=== PATIENT | male | born 1975 | race Caucasian/White ===

== ENCOUNTER 2016-09-15 10:38 | Day surgery (SDC) | payer OTHER ==
[2016-09-13 13:10] VITALS: BMI 44.9
[~2016-09-15 10:38] MED LIST: LACTATED RINGERS 1,000 ML IV SCH; LIDOCAINE 1% 20 ML VIAL (10MG/ML) FOR IV START INTRADERMA PRN; Pre Op ABX Message 1 EACH MISC MISCELLANE ONE; SCOPOLAMINE 1.5MG/72HR PATCH TRANSDERM ONE; fentaNYL (PF) 50 MCG/ML 20 ML VIAL IVP PRN
[2016-09-15 11:14] VITALS: RESP 16; TEMP 97.6
[2016-09-15] MEDS: ONDANSETRON 4 MG/2 ML VIAL IVP ONE ×3 (11:16→14:37)
[2016-09-15] MEDS: DEXAMETHASONE SOD PHOSPHATE 10 MG/ML 1 ML VIAL IV ONE ×2 (11:16→11:39)
[2016-09-15] MEDS: MIDAZOLAM 2 MG/2 ML VIAL IV PRN ×2 (11:19→11:20)
[2016-09-15] MEDS ORDERED: ceFAZolin 2 GM in SODIUM CHLORIDE 0.9% 100 ML IVPB ONE (11:37)
[2016-09-15] MEDS ORDERED: MIDAZOLAM 2 MG/2 ML VIAL ONE (12:13)
[2016-09-15] MEDS ORDERED: ROPIVACAINE 5 MG/ML 30 ML VIAL ONE (12:13)
[2016-09-15] MEDS ORDERED: ROCURONIUM BROMIDE 10 MG/ML 10 ML VIAL IV ONE (12:13)
[2016-09-15] MEDS ORDERED: fentaNYL (PF) 50 MCG/ML 2 ML AMP ONE (12:13)
[2016-09-15] MEDS ORDERED: LIDOCAINE 1% INJ 10MG/ML (20 ML MDV) ONE (12:13)
[2016-09-15] MEDS ORDERED: LIDOCAINE 2%-EPI 1:100,000 20 ML VIAL ONE (12:13)
[2016-09-15] MEDS ORDERED: PROPOFOL 10 MG/ML 20 ML VIAL IV ONE (12:13)
[2016-09-15] MEDS ORDERED: SUCCINYLCHOLINE CHLORIDE VIAL 200 MG/10 ML VIAL IV ONE (12:13)
[2016-09-15] MEDS ORDERED: ePHEDrine 50 MG/ML 1 ML AMP ONE (12:13)
[2016-09-15] MEDS ORDERED: NEOSTIGMINE 1 MG/ML 10 ML VIAL ONE (12:13)
[2016-09-15] MEDS ORDERED: GLYCOPYRROLATE 0.2 MG/ML 2 ML VIAL ONE (12:13)
[2016-09-15] MEDS ORDERED: EPINEPHrine 4 MG in SODIUM CHLORIDE 0.9% IRRIGATIO 3,000 ML IRRIGATION ONE ×4 (13:19)
[2016-09-15] MEDS ORDERED: LACTATED RINGERS 1,000 ML IV ONE (13:53)
--- NOTE | 2016-09-15 14:13 | P.OP ---
Date of Procedure: 09/15/16 Procedure(s) Performed: PREOPERATIVE DIAGNOSES: 1. Left shoulder impingement 2. Subacromial bursitis 3. Rotator cuff tendinopathy 4. Acromioclavicular osteoarthritis 5. Possible referred pain into shoulder from cervical pathology POSTOPERATIVE DIAGNOSES: 1. Right shoulder impingment with subacromial moderate-severe bursitis and subacromial adhesions 2. Superior labral degenerative/type I tear 3. Partial rotator cuff tear (supraspinatus, bursal surface 2-3 mm depth) 4. Possible additional referred pain into shoulder from cervical pathology PROCEDURES PERFORMED: 1. Right shoulder arthroscopy with partial distal clavicle excision 2. Arthroscopic debridement superior labral degenerative tear and partial tear of rotator cuff 3. Arthroscopic lysis of adhesions subacromial space 4. Arthroscopic subacromial decompression ANESTHESIA: General plus interscalene block (given for post-operative pain management) SHOW HOST OR HOSTESS: None COMPLICATIONS: None ESTIMATED BLOOD LOSS: 25 cc TOURNIQUET: None DISPOSITION: To post-anesthesia care unit INDICATIONS: Ron is a 41 year old male with a history of pain in the right shoulder that has been resistant to conservative management. He has signs and symptoms consistent with a possible rotator cuff or labral etiology. There is mild impingement also noted on exam and findings consistent with this on MRI. We have discussed that there may be another source of symptoms, namely the neck , with a possible evolving cervical radiculopathy. At this point the patient has failed conservative management and I have advised a diagnostic arthroscopy with the plan to repair or optimize the condition of the shoulder if possible. I have explained the details of this surgery thoroughly and also explained the potential risks and complications. These are inclusive of, but not limited to: bleeding, infection, scarring, discomfort, blood vessel and nerve damage, stiffness, weakness, need for further surgery, failure to relieve symptoms, persistence or worsening of problems, , and other risks. The consent form has been signed. PROCEDURE: Appropriate consent was obtained from the patient, who was then taken to the operating room and placed in the supine position. General anesthesia was initiated and after confirmation of adequate anesthesia, the patients shoulder was examined. There was full passive range of motion. The shoulder was stable. Next, the patient was rotated into the lateral decubitus position and stabilized to the table with a horn bag and padded straps. Care was taken to make sure that all pressure points were adequately padded. Bear-hugger was used along with bilateral leg sequential compression devices. Prepping and draping was completed in the usual aseptic fashion using ChloraPrep. The patient received prophylactic intravenous antibiotics prior to incision. The shoulder was suspended from traction with 15 lbs. of weight in a position of 45 degrees abduction. Landmarks were outlined with a skin marking pen. Time out was called, confirming patients identity, side, procedure, and antibiotic administration. A spinal needle was inserted into the glenohumeral joint and fluid was administered to distend the joint. Good pressure was noted after 100 cc was administered. A posterior portal was created using an 11 blade and the arthroscopic canula, over a dull trocar, was carefully inserted into the joint. Arthroscopy then commenced. An anterior portal was inserted in the rotator interval area using inside-out technique. Biceps tendon was normal. Infraspinatus, supraspinatus, subscapularis, and teres minor attachments were normal. Hyaline cartilage was noted to be normal with regard to both the glenoid and humeral head. Supraspinatus was completely normal to visualization and probing. Labrum showed evidence of moderate degenerative change superiorly, posteriorly , and anteriorly. These areas of labrum were debrided back to stable tissue using a shaver thermal modification using the ArthroCare device on a low setting and the labrum had a significantly improved appearance once this was performed. Thorough probing of the labrum showed good attachment without evidence of peel back. Subscapularis recess and axillary recess were normal. No significant synovitis was seen. Normal capsular ligaments (SGHL, MGHL, IGHL ) were seen. Attention was then directed to the subacromial space. The camera and instruments were redirected into the subacromial space and bursoscopy was performed. Significant bursitis was noted . A lateral portal was created using outside-in technique and the thickened bursal material was removed using a rotary shaver. The spinal needle was identified and the area was thoroughly inspected around the spinal needle . No evidence of full-thickness rotator cuff tear was seen, however, there was evidence of small partial-thickness tear at the musculotendinous junction and somewhat into the tendon substance of the supraspinatus, but no more than approximately 3 mm depth. Hyperaemia within the bursa likely consistent with chronic impingement syndrome was noted. There did appear to be evidence of outlet impingement--there was less than 5 mm of space available between the undersurface of the acromion and the rotator cuff. The undersurface of the acromion had minor frictional changes consistent with minor impingement syndrome. The underside of the anterior acromion was cleared of soft tissue using an arthroscopic radiofrequency ablator. As noted previously, there were mild frictional changes on the bursal side of the cuff. A limited subacromial decompression was performed using a ventura. Approximately 3 -4 mm of material was removed from the anterior-inferior corner of the acromion. This resection was beveled upwards laterally, and carried medially to the AC joint. The distal clavicle appeared to have a contributing downward ridge at the margin of the acromioclavicular joint, and therefore this ridge of bone was removed using a ventura, but the entirety of the distal clavicle was not removed. Subsequently, 4-0 Monocryl suture was used to close the portals. Steri- strips were applied as well as sterile dressing. The shoulder was then placed into a sling and the patient was transferred to recovery room in stable condition. Sponge and needle counts were correct.
[2016-09-15] MEDS: KETOROLAC 30 MG/ML 1 ML VIAL IVP ONE ×2 (14:37→14:54)
[2016-09-15] MEDS: HYDROmorphone 1 MG/ML 1 ML SYRINGE IVP PRN ×4 (14:37→15:01)
[2016-09-15 16:07] VITALS: BP 134/66; PULSE 60
== END 2016-09-15 16:36 | disposition home or self-care (01) ==
LOC: OR 10:38
PROVIDERS: ATTEND Orthopaedic Surgery
DX: M75.101 Unspecified rotator cuff tear or rupture of right shoulder, not specified as traumatic (principal); M75.01 Adhesive capsulitis of right shoulder; M75.51 Bursitis of right shoulder; M75.41 Impingement syndrome of right shoulder; M19.019 Primary osteoarthritis, unspecified shoulder; M65.811 Other synovitis and tenosynovitis, right shoulder; I49.3 Ventricular premature depolarization; I34.0 Nonrheumatic mitral (valve) insufficiency; Q21.1 Atrial septal defect; I10 Essential (primary) hypertension; J45.909 Unspecified asthma, uncomplicated; E07.9 Disorder of thyroid, unspecified; F32.9 Major depressive disorder, single episode, unspecified; Z79.899 Other long term (current) drug therapy; Z79.1 Long term (current) use of non-steroidal anti-inflammatories (NSAID); Z88.8 Allergy status to other drugs, medicaments and biological substances
CPT/HCPCS: 29822; 64415; J0171; J2250; J0330; J1100; J2710; J0690; J2405; J2001; J3010; J1885; J1170; J2795; J2704

== ENCOUNTER 2016-10-04 15:10 | Emergency (ER) | payer OTHER ==
[2016-10-04] MEDS ORDERED: LIDOCAINE 1% INJ 10MG/ML (20 ML MDV) SQ ONE (16:16)
[2016-10-04] MEDS ORDERED: cefTRIAXone 1,000 MG VIAL (IM USE) IM STA (16:32)
[2016-10-04] MEDS ORDERED: HYDROcodone/APAP 5-325MG 1 EACH TAB PO STA (16:33)
--- NOTE | 2016-10-04 16:35 | ED ---
General Adult HPI - General Chief complaint: Skin/Abscess/Foreign Body Stated complaint: swelling on face Time Seen by Provider: 10/04/16 15:40 Source: patient, family, RN notes reviewed Mode of arrival: ambulatory Limitations: no limitations - History of Present Illness Initial comments: 41-year-old male presenting for facial abscess. Patient states he thought initially an ingrown hair under his nose on the right side which then developed into a large and swollen area. Over the past 3 days it has gotten worse. He denies any specific drainage. He did try to drain it with a needle several days ago but did not get anything out. He is not been on any recent antibiotics. States he is having difficulty breathing through his nose because of the swelling. He denies any throat swelling or sore throat. He denies any fevers or chills. Denies any chest pain or shortness of breath. - Related Data Home Medications Medication Instructions Recorded Confirmed Montelukast [Singulair] 10 mg PO QAM 02/17/14 10/04/16 Atorvastatin [Lipitor] 20 mg PO DAILY 09/13/16 10/04/16 Cetirizine HCl [Zyrtec] 5 mg PO DAILY 09/13/16 10/04/16 Levothyroxine Sodium [Synthroid] 50 mcg PO DAILY 09/13/16 10/04/16 OXcarbazepine [Trileptal] 300 mg PO BID 09/13/16 10/04/16 Sertraline HCl [Zoloft] 100 mg PO HS 09/13/16 10/04/16 Ibuprofen [Motrin] 800 mg PO TID PRN 10/04/16 10/04/16 Previous Rx's Medication Instructions Recorded Sennosides-Docusate Sodium 1 tab PO BID #60 tablet 09/15/16 [Senokot-S] Cephalexin [Keflex] 500 mg PO Q8HR #21 cap 10/04/16 HYDROcodone/APAP 5-325MG [[place] 1 tab PO Q6HR PRN #12 tab 10/04/16 5-325] Ibuprofen [Motrin] 800 mg PO Q8HR PRN #21 tab 10/04/16 Sulfamethox-Tmp 800-160Mg [Bactrim 1 each PO Q12HR #14 tab 10/04/16 Ds] Allergies Allergy/AdvReac Type Severity Reaction Status Date / Time atenolol [From Tenormin] Allergy Swelling Verified 10/04/16 15:48 Review of Systems ROS Statement: Those systems with pertinent positive or pertinent negative responses have been documented in the HPI. ROS Other: All systems not noted in ROS Statement are negative. 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 SEASONAL ALLERGIES History of Any Multi-Drug Resistant Organisms: None Reported Past Surgical History: Orthopedic Surgery, Tonsillectomy Additional Past Surgical History / Comment(s): OPEN HEART SURGERY AT AGE OF 5. JAW SX. CTR- RT WRIST. LT KNEE SCOPE. FRENULECTOMY. SKIN GRAFT LT THIMB Past Anesthesia/Blood Transfusion Reactions: No Reported Reaction Past Psychological History: Depression Smoking Status: Former smoker Past Alcohol Use History: Rare Additional Past Alcohol Use History / Comment(s): QUIT SMOKING 6 MONTHS AGO Past Drug Use History: None Reported - Past Family History Mother Family Medical History: No Reported History General Exam - General Exam Comments Initial Comments: General: Awake and Alert. No acute distress. Does not appear acutely ill. Eyes: LORI, EOM intact. No nystagmus. No scleral icterus. HENT: Atraumatic, normocephalic. Mucous membranes moist. Trachea midline. The area underneath the right nostril approx 2cm x 2cm that is indurated and swollen and erythematous. This area is tender to palpation. There is a scab over the lateral portion of this without any drainage. There is no posterior pharyngeal swelling or erythema. There does not appear to be any intraoral involvement. Neck: The neck is supple, there is no tenderness or JVD. Cardiovascular: Regular rate and rhythm. No murmur, rub, or gallop is appreciated. Distal pulses intact. Respiratory: Lungs are clear to auscultation bilaterally. No wheezes, rales, rhonchi. No respiratory distress. Gastrointestinal: Soft, Nontender. No rebound or guarding. Non-distended. No masses or organomegaly noted. No CVA tenderness. Musculoskeletal: No tenderness. Normal ROM. No gross deformity. No strength deficits. Neurological: A&Ox3. CN II-XII grossly intact, There are no obvious motor or sensory deficits. Coordination appears grossly intact. Speech is normal. Skin: Skin is warm and dry and no rashes or lesions are noted, except as above. Psychiatric: Cooperative, appropriate mood & affect, normal judgment. Limitations: no limitations Course Vital Signs 10/04/16 10/04/16 15:19 17:26 Temperature 97.4 F L 98.2 F Pulse Rate 52 L 50 L Respiratory 20 18 Rate Blood Pressure 176/82 150/67 O2 Sat by Pulse 98 97 Oximetry Procedures - Incision & Drainage Consent Obtained: verbal consent Time Out Performed?: Yes Site: face Anesthetic Used: lidocaine 1% Sterile Field Used?: Yes Scalpel Used: #11 Irrigation Performed?: No I&D Drainage Obtained: Pus, Blood Culture Obtained?: No Patient Tolerated Procedure: well Medical Decision Making - Medical Decision Making 41-year-old male presenting for facial abscess underneath the right nostril. There is some swelling associated with this. Area was anesthetized with topical lidocaine. There was some purulent drainage from the site of the abscess area during this process. I and D was performed over the area where the drainage occurred. There was small amount of purulence and blood expressed. However it is more likely suggestive of facial cellulitis with significant induration than significant abscess. Patient was given IM Rocephin. Plan to double cover on Bactrim and Keflex. Patient does not have any significant MRSA risks at this time. Discussed close follow-up with PCP. Discussed close return precautions if this is not improving over the next 24-48 hours. Patient and mother are agreeable with plan and discharge home. Disposition Clinical Impression: Facial cellulitis, Facial abscess Disposition: HOME SELF-CARE Condition: Stable Instructions: Abscess (ED), Cellulitis (ED) Prescriptions: Cephalexin [Keflex] 500 mg PO Q8HR #21 cap HYDROcodone/APAP 5-325MG [[place] 5-325] 1 tab PO Q6HR PRN #12 tab PRN Reason: Pain Ibuprofen [Motrin] 800 mg PO Q8HR PRN #21 tab PRN Reason: Pain Sulfamethox-Tmp 800-160Mg [Bactrim Ds] 1 each PO Q12HR #14 tab Referrals: Darwin Moncada MD [Primary Care Provider] - 1-2 days Time of Disposition: 16:45
[2016-10-04 17:26] VITALS: BP 150/67; PULSE 50; RESP 18; TEMP 98.2
== END 2016-10-04 17:26 | disposition home or self-care (01) ==
LOC: EC 15:10
DX: L03.211 Cellulitis of face (principal); L02.01 Cutaneous abscess of face; Z79.899 Other long term (current) drug therapy; E78.5 Hyperlipidemia, unspecified; E07.9 Disorder of thyroid, unspecified; Z88.8 Allergy status to other drugs, medicaments and biological substances; F32.9 Major depressive disorder, single episode, unspecified; Z87.891 Personal history of nicotine dependence
CPT/HCPCS: 10060; 96372; 99282; J2001; J0696

== ENCOUNTER 2017-02-03 08:11 | Day surgery (SDC) | payer OTHER ==
[2017-02-01 13:10] VITALS: BMI 45.3
[2017-02-03] MEDS ORDERED: BENZOCAINE SPRAY 100 APPLIC/CAN ONE (08:18)
[2017-02-03 08:24] VITALS: TEMP 98.1
[2017-02-03] MEDS ORDERED: MIDAZOLAM 2 MG/2 ML VIAL ONE (11:04)
[2017-02-03] MEDS ORDERED: fentaNYL (PF) 50 MCG/ML 2 ML AMP ONE (11:04)
[2017-02-03] MEDS ORDERED: BENZOCAINE SPRAY 100 APPLIC/CAN MUCOUS MEM ONE (11:21)
[2017-02-03] MEDS ORDERED: SODIUM CHLORIDE 0.9% 500 ML IV ONE (11:22)
[2017-02-03] MEDS ORDERED: fentaNYL (PF) 50 MCG/ML 2 ML AMP IV ONE (11:23)
[2017-02-03] MEDS ORDERED: MIDAZOLAM 2 MG/2 ML VIAL IV ONE (11:23)
[2017-02-03 11:36] VITALS: PULSE 75
[2017-02-03 13:14] VITALS: RESP 20
[2017-02-03 13:19] VITALS: BP 132/60
--- NOTE | 2017-02-14 12:20 | PCN ---
TRANSESOPHAGEAL ECHO INDICATION: Mitral regurgitation in patient with history of congenital heart disease status post surgery. PROCEDURE NOTE: After obtaining informed consent transesophageal echocardiogram is performed in the left lateral position using an Omniplane probe. Local and IV sedation were obtained using Xylocaine spray, intravenous versed and fentanyl. The patient tolerated the procedure well without any obvious immediate complications. The patient received moderate conscious sedation and the total sedation time was 15 minutes. FINDINGS: Mitral Valve: The mitral valve shows moderate to severe mitral regurgitation. Patient probably has had septum prime and ASD in the past and underwent repair of the mitral valve and intraatrial septum. I do not have that information. Aortic valve is a freely ( ). There is no evidence of stenosis or regurgitation. There is mild tricuspid regurgitation noted. Left ventricle appears mildly enlarged, shows mild to moderate global hypokinesis with an ejection fraction of 40 to 45%. Aorta is free of aneurysm or dissection. CONCLUSIONS: 1. Moderate to severe mitral regurgitation. 2. Cardiomyopathy with an ejection fraction of 40 to 45%. MTDD
== END 2017-02-03 12:50 | disposition home or self-care (01) ==
LOC: CATHCVL 08:11
PROVIDERS: ATTEND Internal Medicine Cardiovascular Disease
DX: I34.0 Nonrheumatic mitral (valve) insufficiency (principal); I49.3 Ventricular premature depolarization; I42.9 Cardiomyopathy, unspecified; E66.8 Other obesity; Z68.41 Body mass index [BMI] 40.0-44.9, adult; Z79.899 Other long term (current) drug therapy
CPT/HCPCS: 93312; 93320; 93325; 99152; J2250; J3010

== ENCOUNTER 2020-05-02 14:31 | Emergency (ER) | payer OTHER ==
[2020-05-02 14:49] VITALS: RESP 18
--- NOTE | 2020-05-02 15:05 | ED ---
General Adult HPI - General Chief complaint: Extremity Injury, Lower Stated complaint: L Lower Extremity Issue Time Seen by Provider: 05/02/20 14:51 Source: patient, RN notes reviewed, old records reviewed Mode of arrival: ambulatory Limitations: no limitations - History of Present Illness Initial comments: 44-year-old male patient presents to ED for evaluation of left foot injury. Patient reports that on 04/28 he dropped a shopping cart wheel on his left foot, proximal aspect of second toe. Patient with the has been ambulatory since but has been having some continued pain. Denies any other injury. Patient reports that he is on Coumadin states that his levels have reportedly been stable and he is declining us checking them today. States he just wants and xray. Systemic: Pt denies fatigue, fever/chills, rash. Pt denies weakness, night sweats, weight loss. Neuro: Pt denies headache, visual disturbances, syncope or pre-syncope. HEENT: Pt denies ocular discharge or irritation, otalgia, rhinorrhea, pharyngitis or notable lymphadenopathy. Cardiopulmonary: Pt denies chest pain, SOB, heart palpitations, dyspnea on exertion. Abdominal/GI: Pt denies abdominal pain, n/v/d. : Pt denies dysuria, burning w/ urination, frequency/urgency. Denies new onset urinary or bowel incontinence. MSK: Pt denies loss of strength or function in extremities. Neuro: Pt denies new onset weakness, paresthesias. - Related Data Home Medications Medication Instructions Recorded Confirmed Montelukast [Singulair] 10 mg PO QAM 02/17/14 02/01/17 Atorvastatin [Lipitor] 20 mg PO DAILY 09/13/16 02/01/17 Cetirizine HCl [Zyrtec] 5 mg PO DAILY 09/13/16 02/01/17 Levothyroxine Sodium [Synthroid] 50 mcg PO DAILY 09/13/16 02/01/17 OXcarbazepine [Trileptal] 300 mg PO BID 09/13/16 02/01/17 Sertraline HCl [Zoloft] 100 mg PO HS 09/13/16 02/01/17 Omeprazole 20 mg PO DAILY 02/01/17 02/01/17 Previous Rx's Medication Instructions Recorded HYDROcodone/APAP 5-325MG [[place] 1 tab PO Q6HR PRN #12 tab 10/04/16 5-325] Ibuprofen [Motrin] 800 mg PO Q8HR PRN #21 tab 10/04/16 Allergies Allergy/AdvReac Type Severity Reaction Status Date / Time atenolol [From Tenormin] Allergy Swelling Verified 05/02/20 14:49 Review of Systems ROS Statement: Those systems with pertinent positive or pertinent negative responses have been documented in the HPI. ROS Other: All systems not noted in ROS Statement are negative. 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 SEASONAL ALLERGIES History of Any Multi-Drug Resistant Organisms: None Reported Past Surgical History: Orthopedic Surgery, Tonsillectomy Additional Past Surgical History / Comment(s): OPEN HEART SURGERY AT AGE OF 5. JAW SX, states has screws in jaw,CTR- RT WRIST. LT KNEE SCOPE,FRENULECTOMY,SKIN GRAFT LT THIMB Past Anesthesia/Blood Transfusion Reactions: No Reported Reaction Past Psychological History: Depression Smoking Status: Never smoker Past Alcohol Use History: Rare Past Drug Use History: None Reported - Past Family History Mother Family Medical History: No Reported History Sister(s) Family Medical History: Pulmonary Embolus General Exam - General Exam Comments Initial Comments: Constitutional: NAD, AOX3, Pt has pleasant affect. HEENT: NC/AT, trachea midline, neck supple, no lymphadenopathy. External ears appear normal, without discharge. Mucous membranes moist. Eyes PERRLA, EOM intact. There is no scleral icterus. No pallor noted. Cardiopulmonary: RRR, no murmurs, rubs or gallops, no JVD noted. Lungs CTAB in anterior and posterior connell. No peripheral edema. Abdominal exam: Abdomen soft and non-distended. Abdomen non-tender to palpation in all 4 quadrants. Bowel sounds active in LLQ. No hepatosplenomegaly. No ecchymosis Neuro: CN II-XII grossly intact. No nuchal rigidity. No raccon eyes, no blue sign, no hemotympanum. No cervical spinal tenderness. MSK: Mild tenderness to proximal aspect of second toe on left foot. Small abrasion on the region. No hematoma. No midfoot tenderness or proximal tip/fib tenderness. No posterior calf tenderness bilaterally. Posterior tibialis and radial pulse +2 bilaterally. Sensation intact in upper and lower extremities. Full active ROM in upper and lower extremities, 5/5 stregnth. Limitations: no limitations Course Vital Signs 05/02/20 05/02/20 14:47 15:45 Temperature 98.2 F 98.1 F Pulse Rate 58 L 76 Respiratory 18 18 Rate Blood Pressure 145/75 145/87 O2 Sat by Pulse 97 96 Oximetry Medical Decision Making - Medical Decision Making 44-year-old male patient presents ED for evaluation ofright foot pain proximal second toe after dropping a wheel from a grocery cart onto that he had removed. Patient reports happened about 5 days ago. Has never towards some discomfort. Does request an x-ray to make sure there is no fracture. Patient is on warfarin however he declines to check his levels today. No other areas of pain patient did not fall to the ground his head or anything that nature. Plain film was negative for acute process. Patient is a small abrasion states that his tetanus is up-to-date. We'll discharge postoperative walking shoe will use crutches as needed, and will follow up with orthopedic consult return to ER if any worsening symptoms. Case discussed with Dr. Barnes. Disposition Clinical Impression: Toe pain Disposition: HOME SELF-CARE Condition: Stable Instructions (If sedation given, give patient instructions): Arthralgia (ED) Additional Instructions: Continue to wear a postoperative walking shoe. May use crutches as needed if unable to bear weight. Follow up with orthopedic consult and PCP tomorrow. Return to ER with any worsening symptoms. Is patient prescribed a controlled substance at d/c from ED?: No Referrals: Yang Elaine DO [Primary Care Provider] - 1-2 days Hugo Fierro DO [Medical Doctor] - 1-2 days
--- NOTE | 2020-05-02 15:38 | XR ---
EXAMINATION TYPE: XR foot complete LT DATE OF EXAM: 05/02/2020 CLINICAL HISTORY: Left foot pain after injury TECHNIQUE: Frontal, lateral, and oblique images of the left foot are obtained. COMPARISON: None FINDINGS: There is no acute fracture/dislocation evident in the left foot. The joint spaces in the left foot appear within normal limits. Accessory os navicular. Tiny well-corticated density at the la teral aspect of the second MTP joint is nonacute. Achilles enthesophyte. Normal osseous mineralizatio n. The overlying soft tissue appears unremarkable. IMPRESSION: There is no acute fracture or dislocation in the left foot.
[2020-05-02 15:54] VITALS: BP 145/87; PULSE 76; TEMP 98.1
== END 2020-05-02 16:07 | disposition home or self-care (01) ==
LOC: EC 14:31
DX: M79.675 Pain in left toe(s) (principal); S90.812A Abrasion, left foot, initial encounter; K21.9 Gastro-esophageal reflux disease without esophagitis; E78.5 Hyperlipidemia, unspecified; I10 Essential (primary) hypertension; E07.9 Disorder of thyroid, unspecified; F32.9 Major depressive disorder, single episode, unspecified; Z79.890 Hormone replacement therapy; Z79.51 Long term (current) use of inhaled steroids; Z79.899 Other long term (current) drug therapy; Z88.8 Allergy status to other drugs, medicaments and biological substances; Z79.01 Long term (current) use of anticoagulants; W20.8XXA Other cause of strike by thrown, projected or falling object, initial encounter; Y92.513 Shop (commercial) as the place of occurrence of the external cause
CPT/HCPCS: 99284

== ENCOUNTER → 2020-09-01 | Outpatient (CLI) | payer MEDICARE, OTHER ==
[2020-09-01 20:29] LABS: African American GFR (CKD) 119.1 (60.0-200.0); Anion Gap 10.2 mmol/L (4.00-12.00); BUN/Creat Ratio 12.22 Ratio (12.00-20.00); Calcium 9.6 mg/dL (8.7-10.3); Carbon Dioxide 25.8 mmol/L (21.6-31.8); Non-African American GFR(CKD) 102.8 (60.0-200.0); Potassium 4.3 mmol/L (3.5-5.5)
== END | disposition home or self-care (01) ==
LOC: LABWHC1 10:50
PROVIDERS: ATTEND Internal Medicine
DX: I50.9 Heart failure, unspecified (principal); I51.9 Heart disease, unspecified; I42.8 Other cardiomyopathies
CPT/HCPCS: 36415; 80048; 83880